=== PATIENT | male | born 1950 | race Caucasian/White ===

== ENCOUNTER 2024-12-24 12:47 | Day surgery (SDC) | payer MEDICARE, OTHER, SELFPAY ==
[2024-12-24] MEDS: LACTATED RINGERS 1,000 ML 42 ML IV (13:49)
[2024-12-24] MEDS: ACETAMINOPHEN 325 MG TABLET 975 MG PO (14:02)
[2024-12-24 14:03] VITALS: BP 132/80; PULSE 77; RESP 20; TEMP 36.2; O2SAT 98; BMI 32.5
--- NOTE | 2024-12-24 14:25 | PM.PREOP ---
Pre-operative Note COVID-19 COVID-19 status: Not tested Interval Note History & Physical reviewed/Exam performed by Physician: Yes Changes to H&P: No
[2024-12-24] MEDS: CEFAZOLIN 2 GM/100 ML PREMIX 100 ML IV (14:55)
[2024-12-24] MEDS: BUPIVACAINE 0.25% (PF) 30 ML, EPINEPHrine 0.15 MG INJ (15:02)
--- NOTE | 2024-12-24 15:04 | SUR.OPER ---
Supine on padded OR bed, head on pillow, arms secured on padded arm boards at <90 degrees abduction, legs uncrossed, safety belt at thigh, tape over blanket over lower legs.
--- NOTE | 2024-12-24 15:41 | PM.OP.1 ---
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 General anesthesia was induced. The right groin was shaved prepped and draped in the usual fashion. Total 30 mL of 0.5% Marcaine was used to perform an ilioinguinal nerve block and cord block and field block. Transverse incision was made over the groin and carried down to the external oblique fibers with Bovie electrocautery. The external oblique fibers were opened along the direction of the fibers and retracted superiorly and inferiorly. The floor of the inguinal canal was inspected to evaluate for direct defect. The cord structures were ensnared with a Enma drain. There was an indirect defect that was dissected free from the cord structures and along with the large cord lipoma was reduced back into the abdomen. A large Bard PerFix plug was placed through the indirect defect. A patch was placed over the floor. 2-0 PDS was used to affix the patch from Luis's ligament with a running stitch inferiorly along the inguinal ligament. The 2 leaflets and plug were all brought together and affixed to recreate the deep ring. Another 2-0 PDS suture was used to affix the mesh to the conjoined tendon thus reapproximating the floor. The ilioinguinal nerve was identified and neurolysis was performed. External oblique was closed with running 3-0 Vicryl. Bridgette's closed 3-0 Vicryl. Skin was closed with 4-0 Monocryl and Dermabond. Patient tolerated the procedure well was transferred to PACU in stable condition for anticipated same-day discharge. Complications: none Post-operative Condition: stable Disposition: PACU Plan for aftercare: Home with spouse
[2024-12-24 15:46] VITALS: BP 109/63; PULSE 70; RESP 12; TEMP 36.6; O2SAT 94
[2024-12-24 15:51] VITALS: BP 108/62; PULSE 69; RESP 13; TEMP 36.7; O2SAT 94
[2024-12-24 15:56] VITALS: BP 108/62; PULSE 84; RESP 15; TEMP 36.6; O2SAT 96
[2024-12-24 15:58] VITALS: BP 118/71
[2024-12-24] MEDS: TRAMADOL 50 MG TABLET PO (16:00)
[2024-12-24 16:02] VITALS: BP 123/79; PULSE 79; RESP 18; TEMP 36.7; O2SAT 99
[2024-12-24] MEDS: TIZANIDINE 4 MG TABLET 2 MG PO (16:53)
--- NOTE | 2024-12-24 16:56 | SUR.PHASEII ---
After getting dressed patient reported pain was 7-8/10. Patient was repositioned and medicated.
--- NOTE | 2024-12-24 17:04 | SUR.PHASEII ---
Patient reported pain 5/10. Able to sit and stand with improved pain.
== END 2024-12-24 17:05 | disposition home or self-care (01) ==
PROVIDERS: Referring Provider Surgery; Visit Provider Surgery
PROC: (CPT 49521; principal; 2024-12-24 14:15)
DX: K40.31 Unilateral inguinal hernia, with obstruction, without gangrene, recurrent (principal); D17.6 Benign lipomatous neoplasm of spermatic cord
CPT/HCPCS: 49521; C1781; J0171; J0690; J1100; J1885; J2405; J2704; J3010